=== PATIENT | male | born 1985 | race Hispanic/Latino ===

== ENCOUNTER 2021-05-03 02:02 | Emergency (ER) | payer OTHER ==
[~2021-05-03] VITALS: Ht 170.2 cm; Wt 99.8 kg
[2021-05-03] MEDS ORDERED: PANTOPRAZOLE SOD 40 MG TABEC PO ONE (02:30)
[2021-05-03] MEDS ORDERED: DONNATAL/LIDOCAINE/MAALOX 30 ML SUSP PO SCH (02:30)
[2021-05-03] MEDS ORDERED: BELLADONNA ALK/PHENOBARBITAL 5 ML UDC PO ONE (02:30)
[2021-05-03] MEDS ORDERED: MAGNESIUM/ALUMINUM/SIMETHICONE 30 ML UDC PO ONE (02:30)
[2021-05-03] MEDS ORDERED: LIDOCAINE VISC 2% SOLN 15 ML UDC PO ONE (02:30)
[2021-05-03] MEDS ORDERED: PANTOPRAZOLE SO40 MG PO (04:16)
[2021-05-03 04:17] VITALS: BP 154/91
== END 2021-05-03 04:36 | disposition home or self-care (01) ==
LOC: ER 02:22
DX: R10.13 Epigastric pain (principal); K29.70 Gastritis, unspecified, without bleeding; I10 Essential (primary) hypertension
CPT/HCPCS: 93005; 99283; S0164